=== PATIENT | female | born 1945 | race Caucasian/White ===

== ENCOUNTER 2024-10-07 11:26 | Emergency (ER) | payer MEDICARE, OTHER ==
[~2024-10-07] VITALS: Ht 162.6 cm; Wt 72.5 kg
[2024-10-07 11:34] VITALS: BP 134/94
[2024-10-07 11:45] VITALS: BP 109/75
[2024-10-07] MEDS ORDERED: NASACORT A55 MCG/ACT NS (11:50)
[2024-10-07] MEDS ORDERED: CLARITIN-D1 TAB PO (11:50)
[2024-10-07 12:00] VITALS: BP 130/84
[2024-10-07 12:12] VITALS: BP 130/84
[2024-10-07] MEDS ORDERED: TAM75CAP PO (12:15)
== END 2024-10-07 12:18 | disposition home or self-care (01) ==
LOC: ED 11:26
DX: J32.9 Chronic sinusitis, unspecified (principal); I10 Essential (primary) hypertension; E78.00 Pure hypercholesterolemia, unspecified; Z20.822 Contact with and (suspected) exposure to COVID-19